=== PATIENT | female | born 1955 | race Caucasian/White ===

== ENCOUNTER → 2016-09-29 | Outpatient (CLI) | payer OTHER ==
[~2016-09-29] MED LIST: CIPRO500 MG PO; COUMADIN5 MG PO; COUMADIN7.5 MG PO; FLAGYL500 MG PO; LISINOPRIL10 MG PO; LO-DOSE ASPIRIN81 M2 PO; ZOFRAN4 MG PO
== END | disposition home or self-care (01) ==
LOC: AMB 08:30
DX: L72.0 Epidermal cyst (principal)
CPT/HCPCS: 88304